=== PATIENT | male | born 1950 | race Caucasian/White ===

== ENCOUNTER → 2022-02-01 | Outpatient (CLI) | payer BC | END | disposition home or self-care (01) | LOC: LAB SHORT 07:00 → LAB 07:00 | DX: Z12.11 Encounter for screening for malignant neoplasm of colon (principal) | CPT/HCPCS: 82270 ==

== ENCOUNTER 2024-09-30 11:22 | Emergency (ER) | payer OTHER, MEDICARE ==
[~2024-09-30] VITALS: Ht 180.3 cm; Wt 95.2 kg
[2024-09-30 11:44] VITALS: BP 172/102
[2024-09-30] MEDS ORDERED: CYCL10 PO (13:17)
== END 2024-09-30 13:40 | disposition home or self-care (01) ==
LOC: ER 11:22
DX: M62.838 Other muscle spasm (principal); R91.1 Solitary pulmonary nodule; V48.0XXA Car driver injured in noncollision transport accident in nontraffic accident, initial encounter; Y92.89 Other specified places as the place of occurrence of the external cause
CPT/HCPCS: 70450; 71250; 74176; 99285-25